=== PATIENT | female | born 1960 ===

== ENCOUNTER 2017-08-17 20:22 | Emergency (ER) | payer SELFPAY ==
[2017-08-17 20:30] VITALS: TEMP 98.5
[2017-08-17] MEDS ORDERED: Sodium Chloride 0.9% 1,000 ML IV STA (20:36)
[2017-08-17] MEDS ORDERED: DiphenhydrAMINE 50 mg/ml Inj IVP STA (20:36)
--- NOTE | 2017-08-17 21:02 | ED PDOC ---
HPI: Allergic Reaction Time Seen by Provider: 08/17/17 20:35 Chief Complaint (Nursing): Allergic Reaction History Per: Patient History/Exam Limitations: no limitations Onset/Duration Of Symptoms: Hrs Current Symptoms Are (Timing): Still Present Possible Cause: Medication Additional Complaint(s): Hx of HTN on lisinopril, states she took motrin at 430 for the first time for leg pain, states that around 630 she noticed her face was getting swollen. States she had mild SOB. Took 50mg of benadryl prior to arrival. States she's had a similar reaction with aspirin in the past. Past Medical History Reviewed: Historical Data, Nursing Documentation, Vital Signs Vital Signs: Last Vital Signs Temp 98.5 F 08/17/17 20:27 Pulse 97 H 08/17/17 20:27 Resp 18 08/17/17 20:27 BP 177/113 H 08/17/17 20:27 Pulse Ox 98 08/17/17 20:27 - Medical History PMH: HTN - Family History Family History: States: Unknown Family Hx - Home Medications Home Medications: Ambulatory Orders Medication Instructions Recorded Acetaminophen [Pain Reliever] 500 mg PO Q4 #30 tablet 08/18/17 Epinephrine [Epipen] 0.3 mg IJ PRN PRN #2 auto.injct 08/18/17 - Allergies Allergies/Adverse Reactions: Allergies Allergy/AdvReac Type Severity Reaction Status Date / Time aspirin Allergy SWELLING Verified 08/17/17 20:30 ibuprofen [From Motrin] Allergy SWELLING Verified 08/17/17 20:30 Review of Systems ROS Statement: Except As Marked, All Systems Reviewed And Found Negative Skin: Positive for: Other (Swelling) Physical Exam - Physical Exam Appears: Positive for: Well, Non-toxic, No Acute Distress Head Exam: Positive for: ATRAUMATIC, NORMAL INSPECTION, NORMOCEPHALIC Skin: Positive for: Normal Color, Warm, DRY Eye Exam: Positive for: Normal appearance, EOMI, PERRL, Other (Swelling to orbits bilaterally, no erythema) ENT: Positive for: Normal ENT Inspection, Pharynx Is (no swelling/erythema), Other (mild lip swelling) Neck: Positive for: Normal, Painless ROM Cardiovascular/Chest: Positive for: Regular Rate, Rhythm Respiratory: Positive for: CNT, Normal Breath Sounds Gastrointestinal/Abdominal: Positive for: Normal Exam, Soft Back: Positive for: Normal Inspection Extremity: Positive for: Normal ROM Neurologic/Psych: Positive for: Alert, Oriented - ECG O2 Sat by Pulse Oximetry: 98 Pulse Ox Interpretation: Normal - Progress ED Course And Treament: 830PM A/P: Hx of HTN p/w eyelid/lip swelling after motrin -likley having allergic reaction -will give benadryl, steroid, pepcid -no airway issue at this time -will continue to monitor 1030PM Improving 0000 Patient's swelling much improved, no respiratory invovlement, asking to go home. Advised to f/u w/ PMD and stop taking NSAIDs. - Critical Care Total Time (In Min): 30 Disposition - Clinical Impression Clinical Impression: Allergic reaction - Disposition Referrals: Flex Craig MD [Family Provider] - Disposition: Routine/Home Disposition Time: 00:38 Condition: IMPROVED Prescriptions: Acetaminophen [Pain Reliever] 500 mg PO Q4 #30 tablet Epinephrine [Epipen] 0.3 mg IJ PRN PRN #2 auto.injct PRN Reason: Anaphylaxis Forms: [facility] (Romanian) Print Language: SWEDISH
[2017-08-17] MEDS ORDERED: DiphenhydrAMINE 50 mg/ml Inj ONE (21:19)
[2017-08-18 00:50] VITALS: BP 152/83; PULSE 78; RESP 19; O2SAT 100
== END 2017-08-18 01:00 | disposition home or self-care (01) ==
LOC: H.ER 20:22
DX: T78.40XA Allergy, unspecified, initial encounter (principal); Z88.6 Allergy status to analgesic agent; I10 Essential (primary) hypertension
CPT/HCPCS: 96374; 96375; 99283; J1200; J2930; J7040